=== PATIENT | female | born 1960 | race Two or more races ===

== ENCOUNTER 2018-11-03 18:22 | Emergency (ER) | payer OTHER ==
[~2018-11-03] VITALS: Ht 165.1 cm; Wt 78.9 kg
[~2018-11-03 18:22] MED LIST: LOTREL 10-20 MG1 CAP
== END 2018-11-04 00:27 | disposition home or self-care (01) ==
LOC: ER 18:22
DX: R21 Rash and other nonspecific skin eruption (principal)

== ENCOUNTER 2021-07-16 09:43 | Outpatient (CLI) | payer OTHER | END 2021-07-16 09:47 | disposition home or self-care (01) | LOC: RX STUDY 09:43 | PROVIDERS: ATTEND Internal Medicine Rheumatology | DX: R13.10 Dysphagia, unspecified (principal) ==

== ENCOUNTER 2021-11-11 07:21 | Outpatient (CLI) | payer OTHER | END 2021-11-11 07:29 | disposition home or self-care (01) | LOC: TOM 07:21 | PROVIDERS: ATTEND Internal Medicine Rheumatology | DX: C18.0 Malignant neoplasm of cecum (principal) | CPT/HCPCS: 74177; Q9965 ==